=== PATIENT | female | born 1980 | race Hispanic/Latino ===

== ENCOUNTER 2020-02-08 23:19 | Emergency (ER) | payer SELFPAY ==
[~2020-02-08] VITALS: Ht 157.5 cm; Wt 97.5 kg
[2020-02-08] MEDS ORDERED: THERAFLU COLD1 EAC4 PO (23:39)
[2020-02-08] MEDS ORDERED: DEXAMETHASONE6 MG PO (23:39)
[2020-02-08] MEDS ORDERED: AZITHROMYCIN250 MG PO (23:39)
--- NOTE | 2020-02-08 23:39 | Emergency Department Note ---
History of Present Illnes History of Present Illness Chief Complaint: Flu Like Symptoms History of Present Illness This is a 39 year old female URI cough. f/c diarrhea for 3 days . Historian: Patient Arrival Mode: Car History limited by: language barrier Application Security Specialist Required: Yes Severity: moderate Onset quality: gradual Duration (how long): day(s) (3 days) Progression: worsening Chronicity: new Relieving factors: none Exacerbating factors: none Associated symptoms: Reports cough, Reports fever/chills, Reports loss of appetite, Reports malaise, Reports weakness Treatments prior to arrival: none Past Medical/Family History Physician Review I have reviewed the patient's past medical and family history. Any updates have been documented here. Past Medical History Recent Fever: No Clinical Suspicion of Infectio: No New/Unexplained Change in Ment: No Past Surgical History: None Social History Smoking Cessation: Never Smoker Any Illegal Drug Use: No TB Exposure/Symptoms: No Physically hurt or threatened: No Family History Family history of heart diseas: No Other Any Pre-Existing Lines (PICC,: No Is patient up to date on immun: No Review of Systems Review of Systems Constitutional: Reports chills, Reports fever, Reports malaise EENTM: Reports no symptoms Cardiovascular: Reports no symptoms Respiratory: Reports no symptoms Gastrointestinal: Reports diarrhea, Reports nausea Genitourinary: Reports no symptoms Musculoskeletal: Reports no symptoms Integumentary: Reports no symptoms Neurological: Reports no symptoms Psychological: Reports no symptoms Endocrine: Reports no symptoms Hematological/Lymphatic: Reports no symptoms Physical Exam Related Data Allergies: Coded Allergies: No Known Allergies (Unverified , 02/08/20) Physical Exam CONSTITUTIONAL Constitutional: Present well-developed, Present well-nourished HENT HENT: Present normocephalic, Present atraumatic, Present oropharynx clear/moist, Present nose normal HENT L/R: Present left ext ear normal, Present right ext ear normal EYES Eyes: Reports PERRL, Reports conjunctivae normal NECK Neck: Present ROM normal PULMONARY Pulmonary: Present effort normal, Present breath sounds normal CARDIOVASCULAR Cardiovascular: Present regular rhythm, Present heart sounds normal, Present capillary refill normal, Present normal rate GASTROINTESTINAL Abdominal: Present soft, Present nontender, Present bowel sounds normal GENITOURINARY Genitourinary: Present exam deferred SKIN Skin: Present warm, Present dry MUSCULOSKELETAL Musculoskeletal: Present ROM normal NEUROLOGICAL Neurological: Present alert, Present oriented x 3, Present no gross motor or sensory deficits PSYCHOLOGICAL Psychological: Present mood/affect normal, Present judgement normal Assessment & Plan Medical Decision Making MDM clincally COVID 19, no test needed Assessment & Plan Final Impression: (1) COVID-19 virus infection (2) Diarrhea Depart Disposition: HOME, SELF-assisted Meds Active Scripts Diphenhydra/Phenyleph/Acetamin (THERAFLU COLD AND COUGH POWDER) 1 Each Powd.pack, 1 PACKET PO Q6H PRN for fever and or pain, #12 Prov:HIRO COPELAND MD 02/08/20 Azithromycin (Z-WILFREDO) 250 Mg Tablet, 1 PKG PO DIRECTED, #1 PKG 0 Refills Prov:HIRO COPELAND MD 02/08/20 Dexamethasone (DEXAMETHASONE) 6 Mg Tablet, 1 TAB PO DAILY, #7 Prov:HIRO COPELAND MD 02/08/20 Physician Attestation Provider Attestation Pt is taking PO well, VSS, sat 98 % RA, safe to d/c, 10 days quarantine. (works at [employer]) HIRO COPELAND MD Feb 08, 2020 23:39
== END 2020-02-08 23:57 | disposition home or self-care (01) ==
LOC: FSED 23:19
DX: U07.1 COVID-19 (principal); R05 Cough; R19.7 Diarrhea, unspecified
CPT/HCPCS: 99282